=== PATIENT | female | born 1945 | race Caucasian/White ===

== ENCOUNTER 2020-07-06 08:57 | Outpatient (RCR) | payer MEDICARE, SELFPAY ==
--- NOTE | 2020-07-06 10:05 | PTOPEVAL ---
Thank you for referring Elizabeth Liu to [facility].? The patient is scheduled to be seen for therapy? ____x/week for ___ weeks. Please review, sign, date and return this plan of care JOSELITO. I agree with and certify that the following plan of care is medically necessary. Referring Physician Date Admitting Provider: Attending Provider: Abhi Swenson, Referring Provider: *PT Outpatient Evaluation Start: 07/06/20 09:03 Freq: Status: Active Protocol: Document 07/06/20 09:03 [facility] (Rec: 07/06/20 10:03 [facility] [id number]) Therapy Assessment Status Assessment Status Assessment Status Evaluation Evaluation Information Problem Diagnosis L knee OA Onset 06/29/20 Additional Evaluation Detail LEFS = 56% functional deficits Subjective Information patient reports she has been Query Text:As Reported By Patient/ having pain increased in the L Family knee fora bout a 1 year, but overall has had pain in the L knee for many years. she reports she has been to a surgeon who has given her an injection back in January. she reports she does have pain every day. she reports has increased pain in the L knee with standing and walking (all weight bearing). she reports she does not have stairs at home, but has increased pain in the L knee. she reports she uses ointments on her knee to help with pain. she reports she has to wear a brace/sleeve on the L knee. Prior Level of Function Comments Additional Prior Level of Function patient reports she has been Comments getting worse with her pain and walking for over a year. she reports she has not been walking, but is riding a bike and does water aerobics. Pain Assessment Timing of Pain Assessment Timing of Pain Assessment Assessment Pain Scale Pain Scale Used Numeric (1 - 10) Self Report Pain Assessment Left Knee(s) Reported Pain Level 0 Pain Frequency Chronic,Continuous, Intermittent Lowest Pain Intensity 0 Greatest Pain Intensity 5 Pain Score Pain Score 0: Self Report Interventions Used Interventions Used By Clinicians
== END 2020-07-29 10:48 | disposition home or self-care (01) ==
LOC: CHSPT 08:57
PROVIDERS: Visit Provider Orthopaedic Surgery
DX: M17.12 Unilateral primary osteoarthritis, left knee (principal)
CPT/HCPCS: 97014; 97110; 97161; 97530; G0283

== ENCOUNTER 2020-10-05 13:59 | Outpatient (RCR) | payer MEDICARE, SELFPAY ==
--- NOTE | 2020-10-05 16:05 | PTOPEVAL ---
Thank you for referring Elizabeth Liu to [facility].? The patient is scheduled to be seen for therapy? ____x/week for ___ weeks. Please review, sign, date and return this plan of care JOSELITO. I agree with and certify that the following plan of care is medically necessary. Referring Physician Date Admitting Provider: Attending Provider: Abhi Swenson Referring Provider: ANURAG Outpatient Evaluation Start: 10/05/20 13:48 Freq: Status: Active Protocol: Document 10/05/20 14:01 [facility] (Rec: 10/05/20 14:56 [facility] [id number]) Therapy Assessment Status Assessment Status Assessment Status Evaluation Evaluation Information Problem Diagnosis L TKA Onset 09/29/20 Additional Evaluation Detail 30% functionality on LEFS Subjective Information Patient states she underwent a Query Text:As Reported By Patient/ L TKA by Dr. Swenson on 09/29/ 21. She is having difficulty walking and doing daily activities. She states she ices 24 hours because of the pain. She states she has been taking 2 pain pills in the morning and at night. She states she has been performing exercises given to her for the doctor 3x a day. Prior Level of Function Activity Level (Last 3 Months) Occupation retired Hand Dominance Right Activity of Daily Living Ability Independent Indoor/Home Mobility Independent Community Mobility Independent Stairs Ability Independent Functional Cognition (Planning, Shopping Independent , Taking Medications) Cooking Yes Cleaning Yes Laundry Yes Shopping Yes Driving Yes Pain Assessment Timing of Pain Assessment Timing of Pain Assessment Pre-Treatment Pain Scale Pain Scale Used Numeric (1 - 10) Self Report Pain Assessment Left Knee(s) Reported Pain Level 3 Pain Score Pain Score 3: Self Report Interventions Used Interventions Used By Clinicians Activity or ADL's,Education, Exercise,Ice Lower Extremity Range of Motion Knee Range of Motion Right Knee Flexion Range of Motion - Active 125 Knee Extension Range of Motion - Active 0 Query Text: Left Knee Flexion Range of Motion - Active 87 Knee Extension Range of Motion - Active -10 Query Text: Lower Extremity Muscle Strength Testing Knee Strength Right Knee Fle
--- NOTE | 2020-11-05 15:10 | PTOPEVAL ---
Thank you for referring Elizabeth Liu to [facility].? The patient is scheduled to be seen for therapy? ____x/week for ___ weeks. Please review, sign, date and return this plan of care JOSELITO. I agree with and certify that the following plan of care is medically necessary. Referring Physician Date Admitting Provider: Attending Provider: Abhi Swenson Referring Provider: CamrynPT Outpatient Evaluation Start: 10/05/20 13:48 Freq: Status: Active Protocol: Document 11/05/20 13:00 ACR (Rec: 11/05/20 13:57 ACR [id number]) Therapy Assessment Status Assessment Status Assessment Status Progress Evaluation Information Problem Diagnosis L TKA Onset 09/29/20 Subjective Information Patient states that she has Query Text:As Reported By Patient/ been walking without the cane. Family The person that has been helping her is leaving Sunday and so she is going to have to start feeding her animals. 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 Patient states she has not tried stairs yet either. She continues to take on pain pill at night because that is when her knee is bothering her. 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 Pain Assessment Timing of Pain Assessment Timing of Pain Assessment Pre-Treatment Pain Scale Pain Scale Used Numeric (1 - 10) Self Report Pain Assessment Left Knee(s) Reported Pain Level 0 Greatest Pain Intensity 2 Pain Score Pain Score 0: Self Report Interventions Used Interventions Used By Clinicians Activity or ADL's,Exercise Lower Extremity Range of Motion Knee Range of Motion Left Knee Flexion Range of Motion - Active 113 Knee Extension Range of Motion - Active 2 Query Text: Lower Extremity Muscle Strength Testing Knee Strength Right Knee Flexion Strength 5 Normal Knee Extension Strength 5 Normal Left Knee Flexion Strength 4+ Good + Knee Extension Strength 3+ Fair + Palpation Assessment Palpation Palpation R knee joint line: 41.5 cm
== END 2020-12-07 16:20 | disposition home or self-care (01) ==
LOC: CHSPT 13:59
DX: Z47.1 Aftercare following joint replacement surgery (principal); Z96.652 Presence of left artificial knee joint
CPT/HCPCS: 97016; 97110; 97161; 97530